=== PATIENT | female | born 1995 ===

== ENCOUNTER 2017-11-01 15:35 | Emergency (ER) | payer MEDICAID ==
--- NOTE | 2017-11-01 16:43 | EDM.PDOC ---
ED HPI GENERAL MEDICAL PROBLEM - General Stated Complaint: [id number] STOMACH PAINS Time Seen by Provider: 11/01/17 16:30 Source of Information: Reports: Patient History Limitations: Reports: No Limitations - History of Present Illness INITIAL COMMENTS - FREE TEXT/NARRATIVE: This 22 yo female patient reports to the ED with a 1-2 week history of foul smelling vaginal discharge. The patient reports that she has not been seen for these symptoms recently. Duration: Week(s):, Constant, Getting Worse Location: Reports: Other Quality: Reports: Other Severity: Moderate Improves with: Reports: None Worsens with: Reports: None Associated Symptoms: Reports: No Other Symptoms - Related Data Allergies Allergy/AdvReac Type Severity Reaction Status Date / Time No Known Allergies Allergy Verified 11/01/17 15:40 Home Meds: Home Meds . [No Known Home Meds] 11/01/17 [History] Past Medical History - Past Health History Medical/Surgical History: Denies Medical/Surgical History Social & Family History - Family History Family Medical History: Noncontributory - Tobacco Use Smoking Status *Q: Never Smoker Second Hand Smoke Exposure: No - Caffeine Use Caffeine Use: Reports: Coffee, Energy Drinks, Soda, Tea - Recreational Drug Use Recreational Drug Use: No ED ROS GENERAL - Review of Systems Review Of Systems: ROS reveals no pertinent complaints other than HPI. ED EXAM, RENAL/ - Physical Exam Exam: See Below Exam Limited By: No Limitations General Appearance: Alert, WD/WN, No Apparent Distress Eye Exam: Bilateral Eye: EOMI, Normal Inspection, PERRL Ears: Normal External Exam, Normal Canal, Hearing Grossly Normal, Normal TMs Nose: Normal Inspection, Normal Mucosa, No Blood Throat/Mouth: Normal Inspection, Normal Lips, Normal Teeth, Normal Gums, Normal Oropharynx, Normal Voice, No Airway Compromise Head: Atraumatic, Normocephalic Neck: Normal Inspection, Supple, Non-Tender, Full Range of Motion Respiratory/Chest: No Respiratory Distress, Lungs Clear, Normal Breath Sounds, No Accessory Muscle Use, Chest Non-Tender Cardiovascular: Normal Peripheral Pulses, Regular Rate, Rhythm, No Edema, No Gallop, No JVD, No Murmur, No Rub GI/Abdominal: Normal Bowel Sounds, Soft, Non-Tender, No Organomegaly, No Distention, No Abnormal Bruit, No Mass (Female) Exam: Deferred Rectal (Female) Exam: Deferred Back Exam: Normal Inspection, Full Range of Motion, NT Extremities: Normal Inspection, Normal Range of Motion, Non-Tender, Normal Capillary Refill, No Pedal Edema Neurological: Alert, Oriented, CN II-XII Intact, Normal Cognition, Normal Gait, Normal Reflexes, No Motor/Sensory Deficits Psychiatric: Normal Affect, Normal Mood Skin Exam: Warm, Dry, Intact, Normal Color, No Rash Lymphatic: No Adenopathy Course - Vital Signs Last Recorded V/S: Last Vital Signs Temp 37.0 C 11/01/17 15:41 Pulse 100 11/01/17 15:41 Resp 18 11/01/17 15:41 BP 116/82 11/01/17 15:41 Pulse Ox 100 11/01/17 15:41 - Orders/Labs/Meds Orders: Active Orders 24 hr Category Date Time Status CULTURE URINE [RM] Stat Lab 11/01/17 16:44 Ordered HCG QUALITATIVE,URINE [URCHEM] Stat Lab 11/01/17 15:45 Ordered UA W/MICROSCOPIC [URIN] Stat Lab 11/01/17 15:45 Ordered Labs: Laboratory Tests 11/01/17 11/01/17 Range/Units 15:50 15:50 Urine Color Yellow (YELLOW) Urine Appearance Clear (CLEAR) Urine pH 5.5 (5.0-9.0) Ur Specific [place] >= 1.030 (1.005-1.030) Urine Protein 100 H (NEGATIVE) Urine Glucose (UA) Negative (NEGATIVE) Urine Ketones Trace H (NEGATIVE) Urine Occult Blood Large H (NEGATIVE) Urine Nitrite Negative (NEGATIVE) Urine Bilirubin Small H (NEGATIVE) Urine Urobilinogen 0.2 (0.2-1.0) mg/dL Ur Leukocyte Esterase Small H (NEGATIVE) Urine RBC 5-10 H /HPF Urine WBC 10-20 H (0-5/HPF) /HPF Ur Epithelial Cells Many H /HPF Urine Bacteria Moderate H (0-FEW/HPF) /HPF Urine Mucus Moderate H /LPF Urine HCG, Qual Negative Departure - Departure Time of Disposition: 16:39 Disposition: Home, Self-Care 01 Condition: Fair Clinical Impression: Bacterial vaginosis Urinary tract infection Qualifiers: Urinary tract infection type: acute cystitis Hematuria presence: with hematuria Qualified Code(s): N30.01 - Acute cystitis with hematuria - Discharge Information Instructions: Urinary Tract Infection, Adult, [id number], Bacterial Vaginosis , [id number] Referrals: PCP,None [Primary Care Provider] - Forms: ED Department Discharge Care Plan Goals: The patient was advised of the examination and lab results during the visit. The patient was given a prescription for Metronidazole (500 mg) #14 to take 1 by mouth 2 times per day for 7 days and Bactrim DS #6 to take 1 by mouth 2 times per day for 3 days. The patient should have a follow-up urinalysis done in 1 week to make sure the infection has resolved. If the patient has any additional symptoms or concerns, the patient should follow-up with her primary care facility or return to the ED. - My Orders Last 24 Hours: My Active Orders 11/01/17 15:45 HCG QUALITATIVE,URINE [URCHEM] Stat UA W/MICROSCOPIC [URIN] Stat 11/01/17 16:44 CULTURE URINE [RM] Stat - Assessment/Plan Last 24 Hours: My Active Orders 11/01/17 15:45 HCG QUALITATIVE,URINE [URCHEM] Stat UA W/MICROSCOPIC [URIN] Stat 11/01/17 16:44 CULTURE URINE [RM] Stat
== END 2017-11-01 16:52 | disposition home or self-care (01) ==
LOC: DL.ED 15:35
DX: N76.0 Acute vaginitis (principal); N30.01 Acute cystitis with hematuria
CPT/HCPCS: 81001; 81025; 87086; 99283